=== PATIENT | female | born 2000 | race Caucasian/White ===

== ENCOUNTER 2019-07-23 12:27 | Emergency (ER) | payer SELFPAY ==
[~2019-07-23] VITALS: Ht 172.7 cm; Wt 59.4 kg
[2019-07-23 12:29] VITALS: BP 155/93; PULSE 113; RESP 18; Ht 172.7 cm; Wt 59.4 kg
== END 2019-07-24 01:47 | disposition left against medical advice (07) ==
LOC: FTE 12:27
DX: Z53.21 Procedure and treatment not carried out due to patient leaving prior to being seen by health care provider (principal)